=== PATIENT | male | born 1985 | race Two or more races ===

== ENCOUNTER 2018-12-16 05:39 | Emergency (ER) | payer SELFPAY ==
[~2018-12-16] VITALS: Ht 165.1 cm; Wt 72.6 kg
[2018-12-16 05:45] VITALS: Ht 165.1 cm; Wt 72.6 kg
[2018-12-16 07:28] VITALS: BP 105/57
== END 2018-12-16 07:28 | disposition home or self-care (01) ==
LOC: ED 05:39
DX: S00.81XA Abrasion of other part of head, initial encounter (principal); Y04.0XXA Assault by unarmed brawl or fight, initial encounter; Y93.89 Activity, other specified; Y92.89 Other specified places as the place of occurrence of the external cause; Y99.8 Other external cause status
CPT/HCPCS: J1885